=== PATIENT | female | born 1995 | race African-American/Black ===

== ENCOUNTER 2022-02-09 15:46 | Outpatient (CLI) | payer OTHER ==
[2022-02-09 16:05] LABS: HCT - HEMATOCRIT 33.9 % (37.0-47.0); HGB - HEMOGLOBIN 11.4 g/dL (12.0-16.0); MEAN CORPUSCULAR HEMOGLOBIN 28.6 pg (27.0-31.0); MEAN CORPUSCULAR HGB CONC 33.6 g/dL (32.0-36.0); MEAN CORPUSCULAR VOLUME 85.2 fL (81.0-99.0); MEAN PLATELET VOLUME 8.9 fL (7.9-10.8); RED BLOOD COUNT 3.98 10^6/uL (4.20-5.40); RED CELL DISTRIBUTION WIDTH 12.8 % (12.0-15.0); WHITE BLOOD COUNT 9.4 x10^3/uL (4.8-10.8)
[2022-02-09 16:14] LABS: CREATININE,URINE 101.5 mg/dL; PROTEIN/CREATININE RATIO,URINE 0.1 (<=0.2)
[2022-02-09 16:17] LABS: ALBUMIN 3.2 g/dL (3.2-5.5); ALBUMIN/GLOBULIN RATIO 0.7 (1.0-2.2); BILIRUBIN,TOTAL 0.4 mg/dL (0.2-1.0); CALCIUM 9.5 mg/dL (8.5-10.3); CREATININE 0.5 mg/dL (0.4-1.0); POTASSIUM 3.7 mmol/L (3.5-5.0); TOTAL PROTEIN 7.8 g/dL (6.7-8.2)
== END 2022-02-09 15:47 | disposition home or self-care (01) ==
LOC: LAB 15:46
PROVIDERS: ATTEND Obstetrics & Gynecology
DX: O13.3 Gestational [pregnancy-induced] hypertension without significant proteinuria, third trimester (principal)
CPT/HCPCS: 36415; 80053; 82570; 84156; 85027

== ENCOUNTER 2022-02-12 07:58 | Outpatient (CLI) | payer OTHER ==
--- NOTE | 2022-02-12 08:57 | PROCEDURE REPORT ---
- HPI Vital Signs Temperature 97.8 F 02/12/22 08:09 Heart Rate 87 02/12/22 08:09 Respiratory Rate 17 02/12/22 08:09 Blood Pressure 142/84 H 02/12/22 08:09 Temperature 97.8 F 02/12/22 08:09 Heart Rate 87 02/12/22 08:09 Respiratory Rate 17 02/12/22 08:09 Blood Pressure 142/84 H 02/12/22 08:09 O2 Saturation - NST Procedure NST Procedure Start Date 02/12/22 Start Time 08:10 Stop Time 08:54 Patient States Movement Yes - Results and Plan Findings/Impression: Patient is a 26-year-old G2, P1 at 31 weeks 2 days gestation here for scheduled NST. NST Performed 02/12/2022 NST Read 02/12/2022 FHT: 140 bpm baseline, moderate variability, accelerations present, no decelerations. [place]: Quiescent Blood pressure elevated, but not severe. Diagnosis 31 weeks gestation Gestational hypertension Continue with twice weekly NST.
[2022-02-12 09:25] VITALS: BP 142/82
== END 2022-02-12 09:10 | disposition home or self-care (01) ==
LOC: WFO 07:58 → FBP 08:02 → WFO 09:10
PROVIDERS: ATTEND Obstetrics & Gynecology
DX: O13.3 Gestational [pregnancy-induced] hypertension without significant proteinuria, third trimester (principal); Z3A.31 31 weeks gestation of pregnancy
CPT/HCPCS: 59025

== ENCOUNTER 2022-02-15 08:00 | Outpatient (CLI) | payer OTHER ==
[2022-02-15 08:32] VITALS: BP 143/71
--- NOTE | 2022-02-19 15:46 | PROCEDURE REPORT ---
- HPI Diagnosis/Indication for NST: Gestational Hypertension Current EDU 04/14/22 Gestation 31 Weeks and 5 Days 2 Para 0 Vital Signs Temperature 98.6 F 02/15/22 08:07 Heart Rate 85 02/15/22 08:07 Respiratory Rate 18 02/15/22 08:07 Blood Pressure 152/78 H 02/15/22 08:07 O2 Saturation 100 02/15/22 08:07 Temperature 98.6 F 02/15/22 08:08 Heart Rate 85 02/15/22 08:07 Respiratory Rate 18 02/15/22 08:07 Blood Pressure 143/71 H 02/15/22 08:32 O2 Saturation 100 02/15/22 08:07 - NST Procedure NST Procedure Start Date 02/15/22 Start Time 08:05 Stop Time 08:55 Vibroacoustic Stimulation Used Yes Patient States Movement Yes EFM 130 mod branden 15x15 accels no decels TOCO: quiet - Results and Plan Findings/Impression: Patient is a 26 yo at 31+5 wga here for assessment of hypertension in No PIH symptoms BPs are within mild range. Labs wnl on 02/12/22 per CNM provider Reviewed management of hemorrhoids Cat I tracing cont with twice weekyl NST and weekly HELEN DX: IUP at 31+5 wga gestational HTN NST read 02/15/22 DOS 02/15/22
== END 2022-02-15 08:55 | disposition home or self-care (01) ==
LOC: WFO 08:00 → FBP 08:02 → WFO 08:55
PROVIDERS: ATTEND Obstetrics & Gynecology
DX: O13.3 Gestational [pregnancy-induced] hypertension without significant proteinuria, third trimester (principal); Z3A.31 31 weeks gestation of pregnancy
CPT/HCPCS: 59025

== ENCOUNTER 2022-02-17 09:50 | Outpatient (CLI) | payer OTHER ==
--- NOTE | 2022-02-17 16:22 | Ultrasound Report ---
PROCEDURE: OB F/U or Repeat INDICATIONS: GESTATIONAL HTN COMPLICATING OUTSIDE/PRIOR DATING DATA: Last menstrual period (LMP): Unknown LMP-based estimated date of delivery (TARIQ): Unknown. First dating scan (date and location): 02/17/2022, referring provider. Estimated date of delivery (TARIQ) from first dating scan: 04/14/2022. The below data below was generated using the ultrasound TARIQ of 04/14/2022 TECHNIQUE: Real-time scanning was performed of the fetus, with image documentation and biometric measurements. Endovaginal scanning: Not performed COMPARISON: Prior report FINDINGS: General: A single living intrauterine gestation is present. Presentation: Vertex Placenta: Placental position is anterior, without previa. Amniotic fluid index: 16.2 cm, within normal limits for gestational age. heart rate: 150 beats per minute. Maternal cervical canal: 3.4 cm long; normal length is 2.5 cm or more. biometrics: Biparietal diameter: 8.02 cm, 32 weeks 1 day Head circumference: 29.36 cm, 32 weeks 3 days Abdominal circumference: 29.34 cm, 33 weeks 2 days Femur length: 6.03 cm, 31 weeks 3 days Estimated gestational age from previous report (previous ultrasound): 32 weeks 0 days Composite gestational age from present scan: 32 weeks 2 days Estimated weight and percentile: 2001.5 g, 57.8 percentile Measurement variability in biometric dating: +/- 10 days from 12-20 weeks gestation, +/- 2 weeks from 20-30 weeks gestation, +/- 3 weeks at 30 weeks gestation or more. Other: Not applicable. IMPRESSION: 1. Living third trimester intrauterine with no sonographic evidence of complications. 2. Current ultrasound age is 2 days greater than clinical age based on prior outside report. Reviewed by: Wallace Banks MD on 02/17/2022 4:21 PM PDT Approved by: Wallace Banks MD on 02/17/2022 4:21 PM PDT Station ID: [id number]
== END 2022-02-17 09:51 | disposition home or self-care (01) ==
LOC: DI 09:50
PROVIDERS: ATTEND Nurse Practitioner Obstetrics & Gynecology
DX: O13.3 Gestational [pregnancy-induced] hypertension without significant proteinuria, third trimester (principal); Z3A.32 32 weeks gestation of pregnancy

== ENCOUNTER 2022-02-18 10:00 | Outpatient (CLI) | payer OTHER ==
[2022-02-18 10:30] VITALS: BP 138/75
[2022-02-18 11:00] LABS: BASOPHILS % (AUTO) 0.1 %; EOSINOPHILS % (AUTO) 0.4 %; HCT - HEMATOCRIT 33.5 % (37.0-47.0); HGB - HEMOGLOBIN 11.1 g/dL (12.0-16.0); LYMPHOCYTES # (AUTO) 1.8 10^3/uL (1.5-3.5); LYMPHOCYTES % (AUTO) 19.9 %; MEAN CORPUSCULAR HEMOGLOBIN 28.1 pg (27.0-31.0); MEAN CORPUSCULAR HGB CONC 33.1 g/dL (32.0-36.0); MEAN CORPUSCULAR VOLUME 84.8 fL (81.0-99.0); MEAN PLATELET VOLUME 8.9 fL (7.9-10.8); MONOCYTES # (AUTO) 0.8 10^3/uL (0.0-1.0); MONOCYTES % (AUTO) 8.3 %; NEUTROPHILS # (AUTO) 6.4 10^3/uL (1.5-6.6); NEUTROPHILS % (AUTO) 70.9 %; PLT - PLATELET COUNT 284 10^3/uL (130-450); RED BLOOD COUNT 3.95 10^6/uL (4.20-5.40); RED CELL DISTRIBUTION WIDTH 12.8 % (12.0-15.0); WHITE BLOOD COUNT 9.1 x10^3/uL (4.8-10.8)
[2022-02-18 11:19] LABS: ALBUMIN 3.2 g/dL (3.2-5.5); ALBUMIN/GLOBULIN RATIO 0.8 (1.0-2.2); ALKALINE PHOSPHATASE 83 IU/L (42-121); ALT ALANINE AMINOTRANSFERASE 15 IU/L (10-60); AST ASPARTATE AMINOTRANSFERASE 18 IU/L (10-42); BILIRUBIN,TOTAL 0.3 mg/dL (0.2-1.0); BUN - BLOOD UREA NITROGEN < 5 mg/dL (6-20); CALCIUM 9.4 mg/dL (8.5-10.3); CARBON DIOXIDE - CO2 22 mmol/L (21-32); CHLORIDE 103 mmol/L (101-111); CREATININE 0.4 mg/dL (0.4-1.0); GFR - MDRD 234 (>89); GLUCOSE 84 mg/dL (70-100); POTASSIUM 3.8 mmol/L (3.5-5.0); SODIUM 136 mmol/L (135-145); TOTAL PROTEIN 7.3 g/dL (6.7-8.2)
[2022-02-18 11:19] LABS: CREATININE,URINE 28.4 mg/dL; TOTAL PROTEIN,URINE TIMED < 6 mg/dL
--- NOTE | 2022-02-19 15:36 | PROCEDURE REPORT ---
- HPI Current EDU 04/14/22 Gestation 32 Weeks and 1 Days Vital Signs Temperature 98.1 F 02/18/22 10:09 Heart Rate 76 02/18/22 10:09 Respiratory Rate 18 02/18/22 10:09 Blood Pressure 152/83 H 02/18/22 10:09 O2 Saturation 100 02/18/22 10:09 Temperature 98.1 F 02/18/22 10:12 Heart Rate 76 02/18/22 10:09 Respiratory Rate 18 02/18/22 10:09 Blood Pressure 138/75 H 02/18/22 10:29 O2 Saturation 100 02/18/22 10:09 - NST Procedure NST Procedure Start Date 02/18/22 Start Time 10:08 Stop Time 08:55 - Results and Plan Plan: Patient is a 26-year-old G2, P1 at 32 weeks 1 days gestation here for scheduled NST. NST Performed 02/18/2022 NST Read 02/18/2022 FHT: 130 bpm baseline, moderate variability, accelerations present, no decele rations. [place]: Quiet Blood pressure elevated, but not in severe range and intervetion is not indicated. Diagnosis 32 weeks gestation Gestational hypertension Continue with twice weekly NST.
== END 2022-02-18 10:55 | disposition home or self-care (01) ==
LOC: WFO 10:00 → FBP 10:01 → WFO 10:55
PROVIDERS: ATTEND Nurse Practitioner Obstetrics & Gynecology
DX: O13.3 Gestational [pregnancy-induced] hypertension without significant proteinuria, third trimester (principal); Z3A.32 32 weeks gestation of pregnancy
CPT/HCPCS: 36415; 59025; 80053; 82570; 84156; 85025; 99214

== ENCOUNTER 2022-02-24 11:51 | Outpatient (CLI) | payer OTHER ==
--- NOTE | 2022-02-24 12:33 | Ultrasound Report ---
PROCEDURE: OB Biophysical Profile INDICATIONS: GESTATIONAL HYPERTENSION OUTSIDE/PRIOR DATING DATA: Last menstrual period (LMP): Unknown.. First dating scan (date and location): February 17, 2022. Estimated date of delivery (TARIQ) from first dating scan: April 14, 2022. TECHNIQUE: Real-time scanning was performed of the fetus, with image documentation and biometric shivani surements. Biophysical profile was also obtained. COMPARISON: February 17, 2022 FINDINGS: General: A single living intrauterine gestation is present. Presentation: Vertex Placenta: Placental position is anterior, without previa. Amniotic fluid index: 11.4 cm, appropriate for gestational age. heart rate: 141 beats per minute. Maternal cervical canal: Not imaged . Estimated gestational age from initial scan: 33 weeks. Biophysical profile: Tone: 2 points. Movement: 2 points. Respiration: 2 points. Largest pocket of fluid: 2 points. Umbilical artery Doppler: 3.2, 2.6, 2.5 IMPRESSION: Live single intrauterine gestation as detailed above. Reviewed by: Avinash Cruz MD on 02/24/2022 12:32 PM PDT Approved by: Avinash Cruz MD on 02/24/2022 12:32 PM PDT Station ID: [id number]
[2022-02-24 16:51] VITALS: BP 149/83
--- NOTE | 2022-02-24 22:16 | Labor Flowsheet ---
Labor Flowsheet Datetime Report Generated by CPN: 02/24/2022 22:16 Datetime: 02/24/2022 17:05 VITAL SIGNS NBP Sys/Sasha/Mean (mmHg): 155 : 87 : 101 Pulse: 95 Datetime: 02/24/2022 16:54 SpO2 (%): 100
--- NOTE | 2022-02-26 18:55 | PROCEDURE REPORT ---
- HPI Current EDU 04/14/22 Gestation 33 Weeks and 0 Days 2 Para 0 Vital Signs Temperature 98 F 02/24/22 16:41 Heart Rate 95 02/24/22 16:41 Respiratory Rate 16 02/24/22 16:41 Blood Pressure 149/83 H 02/24/22 16:41 Temperature 98 F 02/24/22 16:41 Heart Rate 95 02/24/22 16:41 Respiratory Rate 16 02/24/22 16:41 Blood Pressure 149/83 H 02/24/22 16:50 O2 Saturation - NST Procedure NST Procedure Start Date 02/24/22 Start Time 16:44 Stop Time 17:10 Vibroacoustic Stimulation Used No Patient States Movement Yes - Results and Plan Plan: Patient is a 26-year-old G2, P1 at 33 weeks 0 days gestation here for scheduled NST. NST Performed 02/24/2022 NST Read 02/24/2022 FHT: 150 bpm baseline, moderate variability, accelerations present, no decelerations. [place]: Quiet Diagnosis 33 weeks gestation Gestational hypertension Continue with twice weekly NST.
== END 2022-02-24 17:15 | disposition home or self-care (01) ==
LOC: DI 11:51 → FBP 16:34 → DI 17:15
PROVIDERS: ATTEND Obstetrics & Gynecology
DX: O13.3 Gestational [pregnancy-induced] hypertension without significant proteinuria, third trimester (principal); Z3A.33 33 weeks gestation of pregnancy
CPT/HCPCS: 59025

== ENCOUNTER 2022-02-25 18:28 | Outpatient (CLI) | payer OTHER ==
--- NOTE | 2022-02-25 19:26 | PROVIDER PROGRESS NOTE ---
- HPI Chief Complaint: Decreased movement Current : Vital Signs Temperature 98.6 F 02/25/22 18:38 Heart Rate 93 02/25/22 18:38 Respiratory Rate 20 02/25/22 18:38 Blood Pressure 147/82 H 02/25/22 18:38 O2 Saturation 100 02/25/22 18:38 Temperature 98.6 F 02/25/22 18:40 Heart Rate 93 02/25/22 18:38 Respiratory Rate 20 02/25/22 18:38 Blood Pressure 147/82 H 02/25/22 18:38 O2 Saturation 100 02/25/22 18:38 - Procedures OB Procedure Performed: NST Diagnosis/Indication for NST: Decreased movement NST Procedure: NST Procedure Start Time 17:20 Stop Time 17:40 - Plan Plan: Patient is a 26-year-old G2, P1 at 33 weeks 1 day gestation presenting to triage for decreased movement. She last felt good yesterday, but notes that she did not eat before she went to work and forgot her food at home. She is feeling better now that she is here and has had some juice. She feels good movement. She denies headache, right upper quadrant pain, changes in vision. She denies contractions, vaginal bleeding, leaking. complications Gestational hypertension Physical Exam Constitutional: alert, no acute distress, well hydrated, well developed, well nourished, appropriate dress. Cardiovascular: RRR. Respiratory: no respiratory distress. Abdomen: Gravid, nondistended, nontender. Psych: affect and mood appropriate, normal interaction, good eye contact. NST: 135 beats per baseline, moderate variability, accelerations present, no decelerations. Assessment and plan 26-year-old G2, P1 at 33 weeks 1 day gestation with decreased movement 1. Decreased movement -Numerous movement since arrival. Reactive NST. -Already scheduled for biweekly NST and once weekly BPP for gestational hypertension. 2. Stational hypertension -Blood pressure elevated but nonsevere. 3. 33 weeks gestation -Follow-up in clinic outpatient.
[2022-02-25 19:29] VITALS: BP 139/59
== END 2022-02-25 19:50 | disposition home or self-care (01) ==
LOC: WFO 18:28 → FBP 18:32 → WFO 19:50
PROVIDERS: ATTEND Obstetrics & Gynecology
DX: O36.8130 Decreased fetal movements, third trimester, not applicable or unspecified (principal); O13.3 Gestational [pregnancy-induced] hypertension without significant proteinuria, third trimester; Z3A.33 33 weeks gestation of pregnancy
CPT/HCPCS: 59025; 99213

== ENCOUNTER 2022-02-27 08:03 | Outpatient (CLI) | payer OTHER ==
[2022-02-27 08:24] VITALS: BP 148/84
--- NOTE | 2022-03-01 16:08 | PROCEDURE REPORT ---
- HPI Diagnosis/Indication for NST: Gestational Hypertension Current EDU 04/14/22 Gestation 33 Weeks and 3 Days 2 Para 0 Vital Signs Temperature 98.2 F 02/27/22 08:14 Heart Rate 86 02/27/22 08:14 Respiratory Rate 16 02/27/22 08:14 Blood Pressure 148/84 H 02/27/22 08:14 Temperature 208.8 F H 02/27/22 08:45 Heart Rate 86 02/27/22 08:45 Respiratory Rate 16 02/27/22 08:45 Blood Pressure 148/84 H 02/27/22 08:45 O2 Saturation - NST Procedure NST Procedure Start Date 02/27/22 Start Time 08:07 Stop Time 19:42 Vibroacoustic Stimulation Used No Patient States Movement Yes - Results and Plan Plan: Patient is a 26-year-old G2, P1 at 33 weeks 3 days gestation here for scheduled NST. NST Performed 02/27/2022 NST Read 02/27/2022 FHT: 150 bpm baseline, moderate variability, accelerations present, no decelerations. [place]: Quiet Diagnosis 33+3 weeks gestation Gestational hypertension Continue with twice weekly NST.
== END 2022-02-27 09:00 | disposition home or self-care (01) ==
LOC: WFO 08:03 → FBP 08:06 → WFO 09:00
PROVIDERS: ATTEND Obstetrics & Gynecology
DX: O13.3 Gestational [pregnancy-induced] hypertension without significant proteinuria, third trimester (principal); Z3A.33 33 weeks gestation of pregnancy
CPT/HCPCS: 59025

== ENCOUNTER 2022-03-03 07:59 | Outpatient (CLI) | payer OTHER ==
[2022-03-03 08:18] VITALS: BP 142/81
--- NOTE | 2022-03-03 12:58 | PROCEDURE REPORT ---
- HPI Diagnosis/Indication for NST: Gestational Hypertension Current EDU 04/14/22 Gestation 34 Weeks and 0 Days 2 Para 1 Vital Signs Temperature 98.2 F 03/03/22 08:10 Heart Rate 86 03/03/22 08:10 Respiratory Rate 16 03/03/22 08:10 Blood Pressure 142/81 H 03/03/22 08:10 Temperature 98.2 F 03/03/22 08:10 Heart Rate 86 03/03/22 08:10 Respiratory Rate 16 03/03/22 08:10 Blood Pressure 142/81 H 03/03/22 08:10 O2 Saturation - NST Procedure NST Procedure Start Date 03/03/22 Start Time 08:08 Stop Time 08:37 Vibroacoustic Stimulation Used No Patient States Movement Yes - Results and Plan Findings/Impression: heart rate baseline-135 beats per minutes Moderate variability Accelerations- 15x15 BPM Decelerations none Contractions - none NST reactive and reassuring Plan: at 34 weeks 0 days who presents for scheduled NST for gestational hypertension. Blood pressures noted to be mild range. NST is reactive and reassuring.
== END 2022-03-03 08:45 | disposition home or self-care (01) ==
LOC: WFO 07:59 → FBP 08:01 → WFO 08:45
PROVIDERS: ATTEND Obstetrics & Gynecology
DX: O13.3 Gestational [pregnancy-induced] hypertension without significant proteinuria, third trimester (principal); Z3A.34 34 weeks gestation of pregnancy
CPT/HCPCS: 59025

== ENCOUNTER 2022-03-03 08:55 | Outpatient (CLI) | payer OTHER ==
--- NOTE | 2022-03-03 09:59 | Ultrasound Report ---
PROCEDURE: OB Biophysical Profile INDICATIONS: GESTATIONAL HYPERTENSION OUTSIDE/PRIOR DATING DATA: Last menstrual period (LMP): Unknown. First dating scan (date and location): February 17, 2022. Estimated date of delivery (TARIQ) from first dating scan: April 14, 2022. TECHNIQUE: Real-time scanning was performed of the fetus, with image documentation and biometric shivani surements. Biophysical profile was also obtained. COMPARISON: Prior studies dating back to February 17, 2022. FINDINGS: General: A single living intrauterine gestation is present. Presentation: Anterior Placenta: Placental position is vertex, without previa. Amniotic fluid index: 18 cm, appropriate for gestational age. heart rate: 137 beats per minute. Maternal cervical canal: 4.2 cm long; normal length is 2.5 cm or more. Biophysical profile: Tone: 2 points. Movement: 2 points. Respiration: 2 points. Largest pocket of fluid: 2 points. Umbilical artery Doppler: 2.3, 2.3, 2.8 IMPRESSION: Left single intrauterine gestation as detailed above. Reviewed by: Avinash Cruz MD on 03/03/2022 9:58 AM PDT Approved by: Avinash Cruz MD on 03/03/2022 9:58 AM PDT Station ID: [id number]
== END 2022-03-03 08:56 | disposition home or self-care (01) ==
LOC: DI 08:55
PROVIDERS: ATTEND Obstetrics & Gynecology
DX: O13.3 Gestational [pregnancy-induced] hypertension without significant proteinuria, third trimester (principal); Z3A.00 Weeks of gestation of pregnancy not specified

== ENCOUNTER 2022-03-06 08:00 | Outpatient (CLI) | payer OTHER ==
[2022-03-06 09:00] LABS: BASOPHILS % (AUTO) 0.1 %; EOSINOPHILS % (AUTO) 0.4 %; HCT - HEMATOCRIT 34.8 % (37.0-47.0); HGB - HEMOGLOBIN 11.3 g/dL (12.0-16.0); LYMPHOCYTES # (AUTO) 1.8 10^3/uL (1.5-3.5); MEAN CORPUSCULAR HEMOGLOBIN 27.2 pg (27.0-31.0); MEAN CORPUSCULAR HGB CONC 32.5 g/dL (32.0-36.0); MEAN CORPUSCULAR VOLUME 83.7 fL (81.0-99.0); MEAN PLATELET VOLUME 9.4 fL (7.9-10.8); MONOCYTES # (AUTO) 0.5 10^3/uL (0.0-1.0); MONOCYTES % (AUTO) 6.2 %; NEUTROPHILS # (AUTO) 5.6 10^3/uL (1.5-6.6); NEUTROPHILS % (AUTO) 69.9 %; PLT - PLATELET COUNT 290 10^3/uL (130-450); RED BLOOD COUNT 4.16 10^6/uL (4.20-5.40); RED CELL DISTRIBUTION WIDTH 13.1 % (12.0-15.0)
[2022-03-06 09:16] LABS: ALBUMIN 3.2 g/dL (3.2-5.5); ALBUMIN/GLOBULIN RATIO 0.8 (1.0-2.2); ALKALINE PHOSPHATASE 97 IU/L (42-121); ALT ALANINE AMINOTRANSFERASE 13 IU/L (10-60); AST ASPARTATE AMINOTRANSFERASE 19 IU/L (10-42); BILIRUBIN,TOTAL 0.7 mg/dL (0.2-1.0); BUN - BLOOD UREA NITROGEN < 5 mg/dL (6-20); CALCIUM 9.5 mg/dL (8.5-10.3); CARBON DIOXIDE - CO2 18 mmol/L (21-32); CHLORIDE 106 mmol/L (101-111); CREATININE 0.6 mg/dL (0.4-1.0); GFR - MDRD 146 (>89); GLUCOSE 123 mg/dL (70-100); SODIUM 136 mmol/L (135-145); TOTAL PROTEIN 7.3 g/dL (6.7-8.2)
[2022-03-06 09:16] LABS: CREATININE,URINE 119.4 mg/dL; PROTEIN/CREATININE RATIO,URINE 0.1 (<=0.2)
--- NOTE | 2022-03-06 10:34 | PROCEDURE REPORT ---
- HPI Diagnosis/Indication for NST: Gestational Hypertension Current EDU 04/14/22 Gestation 34 Weeks and 3 Days 2 Para 0 Vital Signs Temperature 98.1 F 03/06/22 08:09 Temperature 98.1 F 03/06/22 08:10 Heart Rate 89 03/06/22 08:10 Respiratory Rate 20 03/06/22 08:10 Blood Pressure 134/88 H 03/06/22 10:15 O2 Saturation 100 03/06/22 08:10 - NST Procedure NST Procedure Start Date 03/06/22 Start Time 08:10 Stop Time 08:40 Vibroacoustic Stimulation Used No Patient States Movement Yes - Results and Plan Findings/Impression: heart rate baseline-135 beats per minutes Moderate variability Accelerations- 15x15 BPM Decelerations - spontaneous to 100 for 30 seconds with return to baseline Contractions rare NST reactive and reassuring Plan: 26 year old at 34 weeks 3 days who presents for scheduled NST for gestational hypertension. # Gestational hypertension- BP mostly mild range 140-150's/ 90's. Rare severe range was noted but resolved spontaneously. Labs wnl. NST- spontaneous deceleration noted from baseline of 135 to 100 lasting for 30 seconds. BPP ordered. Addendum" BPP 05/31- continue BP monitoring. F/u for 2x weekly NST and weekly HELEN.
[2022-03-06 12:04] VITALS: BP 148/90
--- NOTE | 2022-03-06 13:05 | Ultrasound Report ---
PROCEDURE: OB Biophysical Profile INDICATIONS: GHTN OUTSIDE/PRIOR DATING DATA: Last menstrual period (LMP): Unknown. LMP-based estimated date of delivery (TARIQ): Not applicable. First dating scan (date and location): 02/17/2022. Estimated date of delivery (TARIQ) from first dating scan: 04/14/2022. TECHNIQUE: Real-time scanning was performed of the fetus, with image documentation and biometric shivani surements. Biophysical profile was also obtained. COMPARISON: 03/03/2022 ultrasound. FINDINGS: General: A single living intrauterine gestation is present. Presentation: Vertex Placenta: Placental position is anterior, without previa. Amniotic fluid index: 16 cm heart rate: 137 beats per minute. Maternal cervical canal: 3.2 cm long; normal length is 2.5 cm or more. Estimated gestational age from initial scan: 34 weeks 3 days Measurement variability in biometric dating: +/- 10 days from 12-20 weeks gestation, +/- 2 weeks from 20-30 weeks gestation, +/- 3 weeks at 30 weeks gestation or later. Survey of anatomy includes normal chest/diaphragm, stomach/abdomen, bilateral renal regions, an d urinary bladder/pelvis. Biophysical profile: Tone: 2 points. Movement: 2 points. Respiration: 2 points. Largest pocket of fluid: 2 points. Umbilical artery Doppler: 2.5, 2.4, 2.5 IMPRESSION: 1. Single living intrauterine gestation. 2. Normal biophysical profile score. Reviewed by: Lanie Navarro MD on 03/06/2022 1:04 PM PDT Approved by: Lanie Navarro MD on 03/06/2022 1:04 PM PDT Station ID: [id number]
== END 2022-03-06 12:36 | disposition home or self-care (01) ==
LOC: WFO 08:00 → FBP 08:04 → WFO 12:36
PROVIDERS: ATTEND Obstetrics & Gynecology
DX: O13.3 Gestational [pregnancy-induced] hypertension without significant proteinuria, third trimester (principal); O36.8330 Maternal care for abnormalities of the fetal heart rate or rhythm, third trimester, not applicable or unspecified; Z3A.34 34 weeks gestation of pregnancy
CPT/HCPCS: 36415; 59025; 80053; 82570; 84156; 85025; 99215

== ENCOUNTER 2022-03-10 09:05 | Outpatient (CLI) | payer OTHER ==
--- NOTE | 2022-03-10 16:18 | Ultrasound Report ---
PROCEDURE: OB Biophysical Profile INDICATIONS: GESTATIONAL HYPERTENSION OUTSIDE/PRIOR DATING DATA: Last menstrual period (LMP): Unknown. LMP-based estimated date of delivery (TARIQ): Unknown. First dating scan (date and location): 02/17/2022. Estimated date of delivery (TARIQ) from first dating scan: 04/14/2022. The below data below was generated using the ultrasound TARIQ of 04/14/2022 TECHNIQUE: Real-time scanning was performed of the fetus, with image documentation and biometric shivani surements. Biophysical profile was also obtained. COMPARISON: OB ultrasound 03/06/2022, 02/17/2022 FINDINGS: General: A single living intrauterine gestation is present. Presentation: Vertex Placenta: Placental position is anterior, without previa. Amniotic fluid index: 10.3 cm, within normal limits for gestational age. Largest pocket 6.0 cm. heart rate: 171 beats per minute. Maternal cervical canal: Not visualized biometrics: Estimated gestational age from initial scan: 35 weeks 0 days Biophysical profile: Tone: 2 points. Movement: 2 points. Respiration: 2 points. Largest pocket of fluid: 2 points. Umbilical artery Doppler: 2.2, 2.3, 1.9 IMPRESSION: Single live intrauterine with ultrasound gestational age of 35 weeks 0 days. BPP 8 out of 8. Reviewed by: Sandra Pelayo MD on 03/10/2022 4:16 PM PDT Approved by: Sandra Pelayo MD on 03/10/2022 4:16 PM PDT Station ID: [id number]
== END 2022-03-10 09:06 | disposition home or self-care (01) ==
LOC: DI 09:05
PROVIDERS: ATTEND Obstetrics & Gynecology
DX: O13.3 Gestational [pregnancy-induced] hypertension without significant proteinuria, third trimester (principal); Z3A.35 35 weeks gestation of pregnancy

== ENCOUNTER 2022-03-13 07:56 | Outpatient (CLI) | payer OTHER ==
[2022-03-13 08:19] VITALS: BP 148/81
--- NOTE | 2022-03-13 09:05 | PROCEDURE REPORT ---
- HPI Diagnosis/Indication for NST: Gestational Hypertension Current EDU 04/14/22 Gestation 35 Weeks and 3 Days 2 Para 0 Vital Signs Temperature 98.6 F 03/13/22 08:05 Heart Rate 95 03/13/22 08:05 Respiratory Rate 16 03/13/22 08:05 Blood Pressure 148/81 H 03/13/22 08:05 Temperature 98.6 F 03/13/22 08:05 Heart Rate 95 03/13/22 08:05 Respiratory Rate 16 03/13/22 08:05 Blood Pressure 148/81 H 03/13/22 08:05 O2 Saturation - NST Procedure NST Procedure Start Date 03/13/22 Start Time 08:05 Stop Time 08:40 Vibroacoustic Stimulation Used No Patient States Movement Yes EFM: 130s, moderate variability, positive accelerations, no decelerations [place]: no contractions Category 1/Reactive NST - Results and Plan Findings/Impression: 26yo at 35.5w presenting for scheduled NST for gestational hypertension - NST reactive - BP stable and she will be IOL at 37w - Follow up with primary OB as scheduled
== END 2022-03-13 09:00 | disposition home or self-care (01) ==
LOC: FBP 07:56 → WFO 07:56
PROVIDERS: ATTEND Obstetrics & Gynecology
DX: O13.3 Gestational [pregnancy-induced] hypertension without significant proteinuria, third trimester (principal); Z3A.35 35 weeks gestation of pregnancy
CPT/HCPCS: 59025

== ENCOUNTER 2022-03-17 08:59 | Outpatient (CLI) | payer OTHER ==
[2022-03-17 10:17] LABS: BASOPHILS % (AUTO) 0.1 %; EOSINOPHILS % (AUTO) 0.5 %; HCT - HEMATOCRIT 34.6 % (37.0-47.0); HGB - HEMOGLOBIN 11.2 g/dL (12.0-16.0); LYMPHOCYTES # (AUTO) 1.7 10^3/uL (1.5-3.5); LYMPHOCYTES % (AUTO) 20.2 %; MEAN CORPUSCULAR HEMOGLOBIN 27.5 pg (27.0-31.0); MEAN CORPUSCULAR HGB CONC 32.4 g/dL (32.0-36.0); MEAN CORPUSCULAR VOLUME 84.8 fL (81.0-99.0); MEAN PLATELET VOLUME 9.5 fL (7.9-10.8); MONOCYTES # (AUTO) 0.7 10^3/uL (0.0-1.0); MONOCYTES % (AUTO) 8.6 %; NEUTROPHILS % (AUTO) 70.1 %; PLT - PLATELET COUNT 262 10^3/uL (130-450); RED BLOOD COUNT 4.08 10^6/uL (4.20-5.40); RED CELL DISTRIBUTION WIDTH 13.1 % (12.0-15.0); WHITE BLOOD COUNT 8.6 x10^3/uL (4.8-10.8)
[2022-03-17 10:25] LABS: CREATININE,URINE 75.7 mg/dL; PROTEIN/CREATININE RATIO,URINE 0.2 (<=0.2)
[2022-03-17 10:26] LABS: ALBUMIN/GLOBULIN RATIO 0.8 (1.0-2.2); ALKALINE PHOSPHATASE 105 IU/L (42-121); ALT ALANINE AMINOTRANSFERASE 14 IU/L (10-60); AST ASPARTATE AMINOTRANSFERASE 21 IU/L (10-42); BILIRUBIN,TOTAL 0.6 mg/dL (0.2-1.0); BUN - BLOOD UREA NITROGEN < 5 mg/dL (6-20); CALCIUM 9.3 mg/dL (8.5-10.3); CARBON DIOXIDE - CO2 19 mmol/L (21-32); CHLORIDE 103 mmol/L (101-111); CREATININE 0.5 mg/dL (0.4-1.0); GFR - MDRD 181 (>89); GLUCOSE 108 mg/dL (70-100); POTASSIUM 3.7 mmol/L (3.5-5.0); SODIUM 135 mmol/L (135-145)
[2022-03-17] MEDS ORDERED: BETAMETHASONE 30 MG/5 ML VIAL IM ONE (11:07)
[2022-03-17] MEDS ORDERED: LABETALOL 100 MG TABLET PO SCH (12:00)
--- NOTE | 2022-03-17 13:05 | PROVIDER PROGRESS NOTE ---
- HPI Current : Current EDU 04/18/22 Gestation 35 Weeks and 3 Days 2 Para 0 Vital Signs Temperature 97.7 F 03/17/22 09:08 Heart Rate 105 H 03/17/22 09:08 Respiratory Rate 18 03/17/22 09:08 Blood Pressure 157/94 H 03/17/22 09:08 Temperature 97.7 F 03/17/22 09:08 Heart Rate 105 H 03/17/22 09:08 Respiratory Rate 18 03/17/22 09:08 Blood Pressure 145/70 H 03/17/22 12:36 O2 Saturation - Procedures OB Procedure Performed: NST Diagnosis/Indication for NST: Pre- Diabetes NST Procedure: NST Procedure Start Date 03/17/22 Start Time 09:16 Stop Time 09:52 Vibroacoustic Stimulation Used No Patient States Movement Yes - Plan Plan: Patient is a 26-year-old G2, P1 at 36+0 weeks 0 days gestation here for scheduled NST. TARIQ 04/14/22 DOS: 03/17/2022 NST Read 03/17/2022 FHT: 145 bpm baseline, moderate variability, accelerations present, no dece lerations. [place]: Quiet HELEN 12.5 BPP 8/8 PIH labs wnl P:C 0.2 Blood pressures mild range but borderline severe range Observed for serial blood pressures Given labetalol 100 mg po x1. BPs now in low mild range Provided with Rx for labetalol 100 mg po bid BMZ 12 mg IM given in anticipate of 37 weeks/possible late delivery Diagnosis 36+0 weeks gestation Gestational hypertension Continue with twice weekly NST. IOL at 37+0 wga
[2022-03-17 13:40] VITALS: BP 157/94
== END 2022-03-17 13:35 | disposition home or self-care (01) ==
LOC: WFO 08:59 → FBP 09:02 → WFO 13:35
PROVIDERS: ATTEND Obstetrics & Gynecology
DX: O13.3 Gestational [pregnancy-induced] hypertension without significant proteinuria, third trimester (principal); Z3A.36 36 weeks gestation of pregnancy
CPT/HCPCS: 36415; 59025; 80053; 82570; 84156; 85025; 96372; 99215; A9270

== ENCOUNTER 2022-03-17 10:00 | Outpatient (CLI) | payer OTHER ==
--- NOTE | 2022-03-17 12:39 | Ultrasound Report ---
PROCEDURE: OB Biophysical Profile INDICATIONS: GESTATIONAL HYPERTENSION OUTSIDE/PRIOR DATING DATA: Last menstrual period (LMP): Unknown. LMP-based estimated date of delivery (TARIQ): Unknown. First dating scan (date and location): 02/17/2022. Estimated date of delivery (TARIQ) from first dating scan: 04/14/2022. The below data below was generated using the ultrasound TARIQ of 04/14/2022 TECHNIQUE: Real-time scanning was performed of the fetus, with image documentation and biometric shivani surements. Biophysical profile was also obtained. COMPARISON: OB ultrasound 03/10/2022 FINDINGS: General: A single living intrauterine gestation is present. Presentation: Vertex Placenta: Placental position is anterior, without previa. Amniotic fluid index: 12.5 cm, normal for gestational age. heart rate: 166 beats per minute. Maternal cervical canal: not assessed. days biometrics: Estimated gestational age from initial scan: 36 weeks 0 days Biophysical profile: Tone: 2 points. Movement: 2 points. Respiration: 2 points. Largest pocket of fluid: 2 points. Umbilical artery Doppler: 2.5, 2.2, 2.6 IMPRESSION: Single live intrauterine . HELEN within normal limits. BPP 05/31 Reviewed by: Sandra Pelayo MD on 03/17/2022 12:37 PM PDT Approved by: Sandra Pelayo MD on 03/17/2022 12:37 PM PDT Station ID: [id number]
== END 2022-03-17 23:59 | disposition home or self-care (01) ==
LOC: DI 10:00
PROVIDERS: ATTEND Obstetrics & Gynecology
DX: O13.3 Gestational [pregnancy-induced] hypertension without significant proteinuria, third trimester (principal); Z3A.36 36 weeks gestation of pregnancy

== ENCOUNTER 2022-04-30 08:00 | Outpatient (CLI) | payer OTHER ==
[2022-04-30 23:18] LABS: BACTERIAL VAGINOSIS DNA POSITIVE (NEGATIVE); CANDIDA GLABRATA DNA NEGATIVE (NEGATIVE); CANDIDA GROUP DNA NEGATIVE (NEGATIVE); CANDIDA KRUSEI DNA NEGATIVE (NEGATIVE); TRICHOMONAS VAGINALIS DNA NEGATIVE (NEGATIVE)
== END 2022-04-30 23:59 | disposition home or self-care (01) ==
LOC: LAB.WC 08:00
PROVIDERS: ATTEND Obstetrics & Gynecology
DX: N89.8 Other specified noninflammatory disorders of vagina (principal)
CPT/HCPCS: 81514

== ENCOUNTER 2024-04-02 08:00 | Outpatient (CLI) | payer OTHER ==
[2024-04-02 20:01] LABS: BACTERIAL VAGINOSIS DNA POSITIVE (NEGATIVE); CANDIDA GLABRATA DNA NEGATIVE (NEGATIVE); CANDIDA GROUP DNA NEGATIVE (NEGATIVE); CANDIDA KRUSEI DNA NEGATIVE (NEGATIVE); TRICHOMONAS VAGINALIS DNA NEGATIVE (NEGATIVE)
== END 2024-04-02 23:59 | disposition home or self-care (01) ==
LOC: LAB.WC 08:00
PROVIDERS: ATTEND Obstetrics & Gynecology
DX: N89.8 Other specified noninflammatory disorders of vagina (principal)
CPT/HCPCS: 81514